=== PATIENT | female | born 1940 | race Hispanic/Latino ===

== ENCOUNTER 2017-11-16 18:30 | Inpatient (IN) | payer OTHER ==
[2017-11-16 21:54] VITALS: BMI 23.8
[2017-11-16] MEDS ORDERED: Pneumococcal 23-Valent Vaccine IM ONE (21:54)
--- NOTE | 2017-11-16 22:00 | CP.PCM.HP ---
History of Present Illness - History of Present Illness History of Present Illness: Sánchez Martinez PGY2 - History and Physical for Hospitalist Service CC: Deconditioning/gait instability HPI: Patient is a 77 year old female with past medical history of Ulcerative Colitis, Arthritis, Hyperlipidemia, DM2 currently without diabetic medication who is transferred to TCU from [facility] for continued physical therapy and rehab. Patient was [facility] to [facility] on November 11 s/p fall with head trauma and leukocytosis(16). Patient was evaluated with Head CT showing small left temporal extracalvarial hematoma with no evidence of underlying skull fracture as well as chest xray which was suspicious for middle lobe pneumonia, presumed pulmonary nodules projecting peripherally within the irght mid lung field, with largest measuring 9 mm. Patient was observed for neurological changes and was started on IV levaquin for community acquired pneumonia. Patient reported never having a productive cough, fever, difficulty breathing, chest pain, dizziness, syncope, seizure activity. 12 point ROS benign other than mentioned in HPI. Imaging from [place] Head CT (11/11/2017) - Small Left temporal extracalvarial hematoma. No evidence of underlying skull fracture. No acute intracranial hemorrhage. Age-related cerebral atrophy with changes of chronic small vessel ischemic disease. Small incidental 2.2 cm righgt posterior fossa arachnoid cyst Chest X ray (11/11/17) - Suspected right middle lobe pneumonia. Presumed pulmonary nodules projecting peripherally within the right midlung field, the largest measuring up to 9 mm. PMH: As above PSH: Cholecystectomy SOCHx: Tobacco: Former 1.5 PPD for 20 plus years, ETOH: Denies, ID: Denies, Currently lives by herself, able to preform ADL ALL: NKDA MEDS: - Carafate 2 Tsp QID - ASA 81mg PO DAIly - Simvastatin 40mg PO daily - Diovan HCT 160mg-12.5mg - Dexilant 60mg PO daily - Monteleukast Sodium PMD: Dr. Elliott Present on Admission - Present on Admission Any Indicators Present on Admission: No Meds Allergies/Adverse Reactions: Allergies Allergy/AdvReac Type Severity Reaction Status Date / Time No Known Allergies Allergy Verified 11/16/17 21:32 Physical Exam - Constitutional Appears: Well, Non-toxic - Head Exam Additional comments: bruising and elevation of scalp at left temporal region - Eye Exam Eye Exam: EOMI, PERRL - ENT Exam ENT Exam: Mucous Membranes Moist - Respiratory Exam Respiratory Exam: Rhonchi (right middle lung), Wheezes, NORMAL BREATHING PATTERN - Cardiovascular Exam Cardiovascular Exam: REGULAR RHYTHM, +S1, +S2 - GI/Abdominal Exam GI & Abdominal Exam: Normal Bowel Sounds - Extremities Exam Extremities exam: Positive for: tenderness (left leg pain with palpation ). Negative for: full ROM, pedal edema - Neurological Exam Neurological exam: Alert, Oriented x3, Reflexes Normal Additional comments: motor and sensory grossly intact bilaterally - Psychiatric Exam Psychiatric exam: Normal Affect, Normal Mood - Skin Skin Exam: Dry, Intact Results - Vital Signs Recent Vital Signs: Last Vital Signs Temp 98.2 F 11/16/17 19:00 Pulse 107 H 11/16/17 19:00 Resp 18 11/16/17 19:00 BP 138/73 11/16/17 19:00 Pulse Ox 93 L 11/16/17 19:00 - Labs Result Diagrams: 11/17/17 06:30 11/17/17 06:30 Assessment & Plan - Assessment and Plan (Free Text) Assessment: Patient is a 77 year old female with past medical history of Ulcerative Colitis , Arthritis, Hyperlipidemia, DM2 currently without diabetic medication who is transferred to TCU from [facility] for continued physical therapy and rehab. Plan: Deconditioning - Continue physical therapy and rehab - TCU admission Right middle lobe pneumonia - CXR showing right middle lobe pneumonia and leukocytosis - No history of productive cough, fever - Started on Levaquin 500mg Daily, Continue therapy with last day November 19 Hx of HLD - Continue statin Suspected pulmonary nodules on previous CXR - recommend non emergent chest CT outpatient for evaluation and further management GI/DVT ppx - Pepcid - Heparin 5000mg Q8H Patient seen and case and plan discussed with attending, Dr. Del Valle - Date & Time Date: 11/16/17 Time: 20:25
[2017-11-17] MEDS: Sucralfate 1 gm/10 ml Oral Susp UD PO SCH ×4 (05:47→21:39)
[2017-11-17 07:09] LABS: BASO # 0.05 K/mm3 (0.0-2.0); BASO % 0.5 % (0.0-3.0); EOS # 0.2 (0.0-0.7); EOS % 1.9 % (1.5-5.0); GRAN # 8.28 (1.4-6.5); GRAN % 76.3 % (50.0-68.0); HEMOGLOBIN 11.1 g/dL (12.0-16.0); LYMPH # 1.7 (1.2-3.4); MEAN CELL VOLUME 83.8 fl (80.0-105.0); MEAN CORPUSCULAR HEMOGLOBIN 26.5 pg (25.0-35.0); MEAN CORPUSCULAR HGB CONC 31.6 g/dl (31.0-37.0); MEAN PLATELET VOLUME 8.9 fl (7.0-11.0); MONO # 0.6 (0.1-0.6); MONO % 5.3 % (1.0-6.0); RBC 4.19 10^6/uL (3.5-6.1); RED CELL DISTRIBUTION WIDTH 14.5 % (11.5-14.5); WHITE BLOOD COUNT 10.9 10^3/ul (4.5-11.0)
[2017-11-17 07:15] LABS: ALBUMIN 3.8 g/dL (3.0-4.8); ALT/SGPT 22 U/L (7-56); AST/SGOT 47 U/L (14-36); BLOOD UREA NITROGEN 18 mg/dL (7-21); GFR AFRICAN-AMERICAN > 60; GFR NON-AFRICAN AMERICAN > 60
[2017-11-17] MEDS ORDERED: Magnesium 2 gm/50 ml NS 2 GM/50 ML BAG IVPB ONE (09:18)
[2017-11-17] MEDS ORDERED: levoFLOXacin 500 MG TAB PO SCH (10:00)
[2017-11-17] MEDS ORDERED: Albuterol-Ipratrop 3 mg / 0.5 (3 ml) UD IH PRN (10:44)
--- NOTE | 2017-11-17 11:19 | CP.PCM.PN ---
<Fani Pablo L - Last Filed: 11/17/17 14:32> Subjective - Date & Time of Evaluation Date of Evaluation: 11/17/17 Time of Evaluation: 11:19 - Subjective Subjective: Fani Pablo PGY-1 Patient Access Registrar, Medicine Progress Note for Dr. Deluna Patient seen and examined at bedside. No acute events overnight. Patient states this morning that her shortness of breath and cough has improved relative to her baseline. Still having some clear sputum production with cough. Denies headache, dizziness, changes in vision or hearing, chest pain, abdominal pain, nausea, vomiting, urinary urgency. Objective - Vital Signs/Intake and Output Vital Signs (last 24 hours): Temp Pulse Resp BP Pulse Ox 98.3 F 109 H 20 130/82 92 L 11/17/17 10:00 11/17/17 10:00 11/17/17 10:00 11/17/17 10:00 11/17/17 10:00 - Medications Medications: Current Medications Acetaminophen (Tylenol 325mg Tab) 650 mg PO Q6H PRN PRN Reason: Fever >100.4 F Albuterol/Ipratropium (Duoneb 3 Mg/0.5 Mg (3 Ml) Ud) 3 ml IH [id number] PRN PRN Reason: Shortness of Breath Aspirin (Aspirin Chewable) 81 mg PO DAILY [facility] Last Admin: 11/17/17 09:45 Dose: 81 mg Atorvastatin Calcium (Lipitor) 40 mg PO DIN [facility] Famotidine (Pepcid) 40 mg PO HS [facility] Heparin Sodium (Porcine) (Heparin) 5,000 units SC Q8 [facility] PRN Reason: Protocol Last Admin: 11/17/17 05:46 Dose: 5,000 units Hydrochlorothiazide (Microzide) 12.5 mg PO DAILY [facility] Last Admin: 11/17/17 09:45 Dose: 12.5 mg Levofloxacin (Levaquin) 250 mg PO DAILY [facility] PRN Reason: Protocol Losartan Potassium (Cozaar) 100 mg PO DAILY [facility] Last Admin: 11/17/17 09:45 Dose: 100 mg Montelukast Sodium (Singulair) 10 mg PO HS [facility] Sucralfate (Carafate Oral Susp) 1 gm PO 0630,1130,1630,2200 [facility] Last Admin: 11/17/17 05:47 Dose: 1 gm - Labs Labs: 11/17/17 06:30 11/17/17 06:30 APTT 32.5 Seconds (25.1-36.5) 11/17/17 06:30 - Constitutional Appears: Non-toxic, No Acute Distress - Head Exam Head Exam: NORMOCEPHALIC Additional comments: Ecchymosis on left islam region - Eye Exam Eye Exam: EOMI, Normal appearance Pupil Exam: NORMAL ACCOMODATION - ENT Exam ENT Exam: Mucous Membranes Moist, Normal Exam - Neck Exam Neck Exam: Full ROM, Normal Inspection - Respiratory Exam Respiratory Exam: Clear to Ausculation Bilateral, NORMAL BREATHING PATTERN. absent: Rales, Rhonchi, Wheezes - Cardiovascular Exam Cardiovascular Exam: RRR, +S1, +S2 - GI/Abdominal Exam GI & Abdominal Exam: Soft, Normal Bowel Sounds. absent: Distended, Firm, Guarding, Tenderness - Extremities Exam Extremities Exam: Full ROM, Normal Inspection - Back Exam Back Exam: NORMAL INSPECTION - Neurological Exam Neurological Exam: Alert, Awake, CN II-XII Intact, Oriented x3 - Psychiatric Exam Psychiatric exam: Normal Affect, Normal Mood - Skin Skin Exam: Dry, Intact, Normal Color Additional comments: Scab on left lower extremity from fall Assessment and Plan - Assessment and Plan (Free Text) Assessment: Patient is a 77 yo female with past medical history ulcerative colitis , hyperlipidemia, T2DM transferred from transitional care unit at [facility] for physical therapy and rehab post fall. Plan: Deconditioned state - Continue physical therapy and rehab in TCU Right middle lobe pneumonia - Continue levaquin Hypomagnesemia - repleted - continue to monitor Suspected pulmonary nodules on CXR - recommend outpatient followup with PMD for chest CT GI/DVT PPX - Pepcid - Heparin Patient seen and discussed with attending physician Dr. Mikie Pablo PGY-1 <Marcia Deluna - Last Filed: 11/17/17 17:17> Objective - Vital Signs/Intake and Output Vital Signs (last 24 hours): Temp Pulse Resp BP Pulse Ox 98.2 F 109 H 16 109/68 93 L 11/17/17 16:00 11/17/17 16:00 11/17/17 16:00 11/17/17 16:00 11/17/17 16:00 - Medications Medications: Current Medications Acetaminophen (Tylenol 325mg Tab) 650 mg PO Q6H PRN PRN Reason: Fever >100.4 F Albuterol/Ipratropium (Duoneb 3 Mg/0.5 Mg (3 Ml) Ud) 3 ml IH [id number] PRN PRN Reason: Shortness of Breath Last Admin: 11/17/17 11:30 Dose: 3 ml Aspirin (Aspirin Chewable) 81 mg PO DAILY [facility] Last Admin: 11/17/17 09:45 Dose: 81 mg Atorvastatin Calcium (Lipitor) 40 mg PO DIN [facility] Last Admin: 11/17/17 17:06 Dose: 40 mg Enoxaparin Sodium (Lovenox) 30 mg SC DAILY [facility] PRN Reason: Protocol Famotidine (Pepcid) 40 mg PO HS [facility] Hydrochlorothiazide (Microzide) 12.5 mg PO DAILY [facility] Last Admin: 11/17/17 09:45 Dose: 12.5 mg Levofloxacin (Levaquin) 500 mg PO 0830 [facility] PRN Reason: Protocol Losartan Potassium (Cozaar) 100 mg PO DAILY [facility] Last Admin: 11/17/17 09:45 Dose: 100 mg Montelukast Sodium (Singulair) 10 mg PO HS [facility] Sucralfate (Carafate Oral Susp) 1 gm PO 0630,1130,1630,2200 [facility] Last Admin: 11/17/17 17:06 Dose: 1 gm - Labs Labs: 11/17/17 06:30 11/17/17 06:30 APTT 32.5 Seconds (25.1-36.5) 11/17/17 06:30 Attending/Attestation - Attestation I have personally seen and examined this patient.: Yes I have fully participated in the care of the patient.: Yes I have reviewed all pertinent clinical information, including history, physical exam and plan: Yes Notes (Text): 11/17/17 17:12 Attending note; patient seen and examined with resident in rehabilitation unit. Patient is a 77 year old female with past medical history of Ulcerative Colitis , Arthritis, Hyperlipidemia, was transferred to TCU from [facility] for physical therapy and rehab. patient had a recent fall. CT head was negative for intracranial bleed. Patient had right middle lobe pneumonia. Continued albuterol. Continue Levaquin. GI and DVT prophylaxis. continue physical therapy and occupational therapy. Upon discharge patient will follow up with PMD . 11/17/17 17:16
[2017-11-18] MEDS: Sucralfate 1 gm/10 ml Oral Susp UD PO SCH ×4 (05:56→21:09)
[2017-11-18] MEDS: Enoxaparin 30 mg Syringe SC SCH (05:56)
[2017-11-18] MEDS: levoFLOXacin 500 MG TAB PO SCH (09:26)
[2017-11-18] MEDS ORDERED: Enoxaparin 30 mg Syringe SC SCH (10:00)
[2017-11-19] MEDS: Sucralfate 1 gm/10 ml Oral Susp UD PO SCH ×4 (06:39→21:33)
[2017-11-19] MEDS: Enoxaparin 30 mg Syringe SC SCH (06:40)
[2017-11-19] MEDS: levoFLOXacin 500 MG TAB PO SCH (09:23)
--- NOTE | 2017-11-19 11:04 | CP.PCM.PN ---
<Jesus Farah - Last Filed: 11/19/17 11:01> Subjective - Date & Time of Evaluation Date of Evaluation: 11/19/17 Time of Evaluation: 11:01 - Subjective Subjective: Jesus Farah D.O PGY-1, Internal Medicine progress note for Dr. Deluna Patient was examined at bedside, no acute overnight events. Still having some clear sputum production with cough. Denies fevers, chills, chest pain, shortness of breath, abdominal pain, N/V/D. Objective - Vital Signs/Intake and Output Vital Signs (last 24 hours): Temp Pulse Resp BP Pulse Ox 98.4 F 101 H 20 110/51 L 94 L 11/18/17 16:00 11/18/17 16:00 11/18/17 16:00 11/18/17 16:00 11/18/17 16:00 - Medications Medications: Current Medications Acetaminophen (Tylenol 325mg Tab) 650 mg PO Q6H PRN PRN Reason: Fever >100.4 F Albuterol/Ipratropium (Duoneb 3 Mg/0.5 Mg (3 Ml) Ud) 3 ml IH [id number] PRN PRN Reason: Shortness of Breath Last Admin: 11/17/17 11:30 Dose: 3 ml Aspirin (Aspirin Chewable) 81 mg PO DAILY [facility] Last Admin: 11/19/17 09:23 Dose: 81 mg Atorvastatin Calcium (Lipitor) 40 mg PO DIN [facility] Last Admin: 11/18/17 17:14 Dose: 40 mg Enoxaparin Sodium (Lovenox) 30 mg SC 0600 [facility] PRN Reason: Protocol Last Admin: 11/19/17 06:40 Dose: 30 mg Famotidine (Pepcid) 40 mg PO HS [facility] Last Admin: 11/18/17 21:10 Dose: 40 mg Levofloxacin (Levaquin) 500 mg PO 0830 [facility] PRN Reason: Protocol Last Admin: 11/19/17 09:23 Dose: 500 mg Losartan Potassium (Cozaar) 100 mg PO DAILY [facility] Last Admin: 11/19/17 09:23 Dose: 100 mg Montelukast Sodium (Singulair) 10 mg PO HS [facility] Last Admin: 11/18/17 21:10 Dose: 10 mg Sucralfate (Carafate Oral Susp) 1 gm PO 0630,1130,1630,2200 [facility] Last Admin: 11/19/17 06:39 Dose: 1 gm - Labs Labs: 11/17/17 06:30 11/17/17 06:30 APTT 32.5 Seconds (25.1-36.5) 11/17/17 06:30 - Constitutional Appears: Well, No Acute Distress - Head Exam Head Exam: ATRAUMATIC, NORMAL INSPECTION - Eye Exam Eye Exam: Normal appearance - Respiratory Exam Respiratory Exam: Clear to Ausculation Bilateral, Wheezes. absent: Rales, Rhonchi Additional comments: Mild expiratory wheezes - Cardiovascular Exam Cardiovascular Exam: REGULAR RHYTHM, +S1, +S2. absent: Gallop, Rubs, Murmur - GI/Abdominal Exam GI & Abdominal Exam: Soft, Normal Bowel Sounds. absent: Tenderness - Extremities Exam Extremities Exam: absent: Calf Tenderness, Pedal Edema - Neurological Exam Neurological Exam: Alert, Awake, Oriented x3 - Psychiatric Exam Psychiatric exam: Normal Affect, Normal Mood - Skin Skin Exam: Dry, Normal Color, Warm Assessment and Plan - Assessment and Plan (Free Text) Assessment: Ms. Rodriguez is a 77 yo female with past medical history ulcerative colitis, hyperlipidemia, T2DM transferred from transitional care unit at [facility] for physical therapy and rehab post fall. Plan: Deconditioned state - Continue physical therapy and rehab in TCU Hypotension - Hydrochlorothiazide held Right middle lobe pneumonia - Continue levaquin Suspected pulmonary nodules on CXR - recommend outpatient followup with PMD for chest CT GI/DVT PPX - Pepcid - Lovenox Patient seen, examined, and case discussed with Dr. Deluna <Marcia Deluna - Last Filed: 11/19/17 11:40> Objective - Vital Signs/Intake and Output Vital Signs (last 24 hours): Temp Pulse Resp BP Pulse Ox 98.4 F 101 H 20 110/51 L 94 L 11/18/17 16:00 11/18/17 16:00 11/18/17 16:00 11/18/17 16:00 11/18/17 16:00 - Medications Medications: Current Medications Acetaminophen (Tylenol 325mg Tab) 650 mg PO Q6H PRN PRN Reason: Fever >100.4 F Albuterol/Ipratropium (Duoneb 3 Mg/0.5 Mg (3 Ml) Ud) 3 ml IH [id number] PRN PRN Reason: Shortness of Breath Last Admin: 11/17/17 11:30 Dose: 3 ml Aspirin (Aspirin Chewable) 81 mg PO DAILY [facility] Last Admin: 11/19/17 09:23 Dose: 81 mg Atorvastatin Calcium (Lipitor) 40 mg PO DIN [facility] Last Admin: 11/18/17 17:14 Dose: 40 mg Enoxaparin Sodium (Lovenox) 30 mg SC 0600 [facility] PRN Reason: Protocol Last Admin: 11/19/17 06:40 Dose: 30 mg Famotidine (Pepcid) 40 mg PO HS [facility] Last Admin: 11/18/17 21:10 Dose: 40 mg Levofloxacin (Levaquin) 500 mg PO 0830 [facility] PRN Reason: Protocol Last Admin: 11/19/17 09:23 Dose: 500 mg Losartan Potassium (Cozaar) 100 mg PO DAILY [facility] Last Admin: 11/19/17 09:23 Dose: 100 mg Montelukast Sodium (Singulair) 10 mg PO HS [facility] Last Admin: 11/18/17 21:10 Dose: 10 mg Sucralfate (Carafate Oral Susp) 1 gm PO 0630,1130,1630,2200 [facility] Last Admin: 11/19/17 06:39 Dose: 1 gm - Labs Labs: 11/17/17 06:30 11/17/17 06:30 APTT 32.5 Seconds (25.1-36.5) 11/17/17 06:30 Attending/Attestation - Attestation I have personally seen and examined this patient.: Yes I have fully participated in the care of the patient.: Yes I have reviewed all pertinent clinical information, including history, physical exam and plan: Yes Notes (Text): 11/19/17 11:39 Attending note; patient seen and examined with resident in TCU. Patient is alert and awake. Denies any chest pain, shortness of breath. Minimal amount of cough. No significant sputum production. Patient is a 77 year old female with past medical history of Ulcerative Colitis , Arthritis, Hyperlipidemia was transferred to TCU from [facility] for physical therapy and rehab. patient had a recent fall. CT head was negative for intracranial bleed. Patient had right middle lobe pneumonia. Continued albuterol. Continue Levaquin. Relative hypotension; HCTZ on hold. Monitor closely GI and DVT prophylaxis. continue physical therapy and occupational therapy. Upon discharge patient will follow up with PMD .
[2017-11-20] MEDS: Enoxaparin 30 mg Syringe SC SCH (05:47)
[2017-11-20] MEDS: Sucralfate 1 gm/10 ml Oral Susp UD PO SCH ×4 (05:47→21:36)
[2017-11-20] MEDS: levoFLOXacin 500 MG TAB PO SCH (07:53)
[2017-11-21] MEDS: Enoxaparin 30 mg Syringe SC SCH (05:35)
[2017-11-21] MEDS: Sucralfate 1 gm/10 ml Oral Susp UD PO SCH ×4 (05:35→21:42)
[2017-11-21] MEDS: levoFLOXacin 500 MG TAB PO SCH (07:50)
--- NOTE | 2017-11-21 15:15 | CP.PCM.PN ---
<Jesus Farah - Last Filed: 11/21/17 18:17> Subjective - Date & Time of Evaluation Date of Evaluation: 11/21/17 Time of Evaluation: 15:15 - Subjective Subjective: Jesus Farah D.O PGY-1, Internal Medicine progress note for Dr. Maddox Patient was examined at bedside, no acute overnight events. Patient complains of pain in both her feet due to her arthritis but has resolved after taking tylenol. Denies fevers, chills, chest pain, shortness of breath, abdominal pain , N/V/D. Objective - Vital Signs/Intake and Output Vital Signs (last 24 hours): Temp Pulse Resp BP Pulse Ox 98.7 F 98 H 18 100/53 L 95 11/20/17 16:00 11/20/17 16:00 11/20/17 16:00 11/20/17 16:00 11/20/17 10:00 - Medications Medications: Current Medications Acetaminophen (Tylenol 325mg Tab) 650 mg PO Q6H PRN PRN Reason: Fever >100.4 F Last Admin: 11/21/17 09:30 Dose: 650 mg Albuterol/Ipratropium (Duoneb 3 Mg/0.5 Mg (3 Ml) Ud) 3 ml IH [id number] PRN PRN Reason: Shortness of Breath Last Admin: 11/17/17 11:30 Dose: 3 ml Aspirin (Aspirin Chewable) 81 mg PO DAILY [facility] Last Admin: 11/21/17 09:31 Dose: 81 mg Atorvastatin Calcium (Lipitor) 40 mg PO DIN [facility] Last Admin: 11/20/17 16:46 Dose: 40 mg Enoxaparin Sodium (Lovenox) 30 mg SC 0600 [facility] PRN Reason: Protocol Last Admin: 11/21/17 05:35 Dose: 30 mg Famotidine (Pepcid) 40 mg PO HS [facility] Last Admin: 11/20/17 21:36 Dose: 40 mg Levofloxacin (Levaquin) 500 mg PO DAILY [facility] PRN Reason: Protocol Stop: 11/24/17 10:01 Losartan Potassium (Cozaar) 100 mg PO DAILY [facility] Last Admin: 11/21/17 09:32 Dose: 100 mg Montelukast Sodium (Singulair) 10 mg PO HS [facility] Last Admin: 11/20/17 21:36 Dose: 10 mg Sucralfate (Carafate Oral Susp) 1 gm PO 0630,1130,1630,2200 [facility] Last Admin: 11/21/17 12:02 Dose: 1 gm - Labs Labs: 11/17/17 06:30 11/17/17 06:30 APTT 32.5 Seconds (25.1-36.5) 11/17/17 06:30 - Constitutional Appears: No Acute Distress - Head Exam Head Exam: ATRAUMATIC, NORMAL INSPECTION - Eye Exam Eye Exam: Normal appearance - ENT Exam ENT Exam: Mucous Membranes Moist - Respiratory Exam Respiratory Exam: Clear to Ausculation Bilateral. absent: Rales, Rhonchi, Wheezes - Cardiovascular Exam Cardiovascular Exam: REGULAR RHYTHM, +S1, +S2. absent: Gallop, Rubs, Murmur - GI/Abdominal Exam GI & Abdominal Exam: Soft, Normal Bowel Sounds. absent: Tenderness - Extremities Exam Extremities Exam: absent: Calf Tenderness, Pedal Edema - Neurological Exam Neurological Exam: Alert, Awake, Oriented x3 - Psychiatric Exam Psychiatric exam: Normal Affect, Normal Mood - Skin Skin Exam: Dry, Normal Color, Warm Assessment and Plan - Assessment and Plan (Free Text) Assessment: Ms. Rodriguez is a 77 yo female with past medical history ulcerative colitis, hyperlipidemia, and DM-2 transferred from transitional care unit at [facility] for physical therapy and rehab post-fall. She was found to have pneumonia and is currently being treated with anitbiotics Plan: Deconditioned state - Continue physical therapy and rehab [facility] Acquired Pneumonia - Continue Levaquin 500mg PO QD- last day of treatment is 11/24 History of hypertension - C/w Losartan 100mg - Hydrochlorothiazide held due to low BP History of hyperlipidemia - C/w Lipitor 40mg Suspected pulmonary nodules on CXR - Imaging was done at [facility] - Recommended outpatient followup with PMD for chest CT GI/DVT PPX - Pepcid 40mg - Lovenox 30mg SC Patient case reviewed with and plan approved by attending physician, Dr. Maddox. <Krissy Maddox - Last Filed: 11/22/17 08:08> Objective - Vital Signs/Intake and Output Vital Signs (last 24 hours): Temp Pulse Resp BP Pulse Ox 97.6 F 104 H 20 110/74 97 11/21/17 10:00 11/21/17 10:00 11/21/17 10:00 11/21/17 10:00 11/21/17 10:00 Intake and Output: 11/22/17 11/22/17 06:59 18:59 Intake Total 360 Balance 360 - Medications Medications: Current Medications Acetaminophen (Tylenol 325mg Tab) 650 mg PO Q6H PRN PRN Reason: Fever >100.4 F Last Admin: 11/21/17 09:30 Dose: 650 mg Albuterol/Ipratropium (Duoneb 3 Mg/0.5 Mg (3 Ml) Ud) 3 ml IH [id number] PRN PRN Reason: Shortness of Breath Last Admin: 11/17/17 11:30 Dose: 3 ml Aspirin (Aspirin Chewable) 81 mg PO DAILY [facility] Last Admin: 11/21/17 09:31 Dose: 81 mg Atorvastatin Calcium (Lipitor) 40 mg PO DIN [facility] Last Admin: 11/21/17 18:07 Dose: 40 mg Enoxaparin Sodium (Lovenox) 30 mg SC 0600 [facility] PRN Reason: Protocol Last Admin: 11/22/17 05:57 Dose: 30 mg Levofloxacin (Levaquin) 500 mg PO DAILY [facility] PRN Reason: Protocol Stop: 11/24/17 10:01 Losartan Potassium (Cozaar) 100 mg PO DAILY [facility] Last Admin: 11/21/17 09:32 Dose: 100 mg Montelukast Sodium (Singulair) 10 mg PO HS [facility] Last Admin: 11/21/17 21:42 Dose: 10 mg Sucralfate (Carafate Oral Susp) 1 gm PO 0630,1130,1630,2200 [facility] Last Admin: 11/22/17 05:57 Dose: 1 gm - Labs Labs: 11/17/17 06:30 11/17/17 06:30 APTT 32.5 Seconds (25.1-36.5) 11/17/17 06:30 Attending/Attestation - Attestation I have personally seen and examined this patient.: Yes I have fully participated in the care of the patient.: Yes I have reviewed all pertinent clinical information, including history, physical exam and plan: Yes Notes (Text): Patient seen and examined by me at 12:15PM 11/21/17 with resident. Patient is new to me. Case discussed with Dr. Nova. Case including HPI, physical exam , and physical assessment and plan discussed with resident. Agree with above with following additions/corrections. Patient is a 69-year-old female with past medical history significant for ulcerative colitis, arthritis, hyperlipidemia, type 2 diabetes, and recent fall and was transferred to TCU from [facility] for physical therapy and rehabilitation. Patient states that she is doing well with physical therapy. Complains of pain from arthritis in bilateral feet and ankles. Patient denies chest pain or shortness of breath. No abdominal pain, nausea, or vomiting. No fevers or chills. No headaches or dizziness. No dysuria. No diarrhea or constipation. States she is eating well. Physical exam: Gen: Awake and alert sitting up in bed in no acute distress HEENT: Normocephalic, atraumatic, extraocular muscles intact, pupils equal reactive, oropharynx is pink and moist, no pharyngeal erythema or exudate appreciated, neck is supple. Cardiovascular: Normal rhythm, normal S1-S2. No murmurs, rubs, or gallops appreciated Pulmonary: Normal respiratory effort. No rhonchi, rales or wheezing appreciated. Gastrointestinal: Soft, nontender, nondistended, positive bowel sounds all 4 quadrants, no guarding Musculoskeletal: Moves all extremities, no calf tenderness Central nervous system: AAO 3 Dermatologic: Skin warm and dry Assessment and plan: Patient is a 69-year-old female with past medical history significant for ulcerative colitis, arthritis, hyperlipidemia, type 2 diabetes, and recent fall and was transferred to TCU from [facility] for physical therapy and rehabilitation. 1. Deconditioning status post recent fall. Continue physical therapy as tolerated. 2. Possible right middle lobe pneumonia on chest x-ray. Patient is status post treatment with Levaquin. Patient asymptomatic. 3. Pulmonary nodules. Patient will need CAT scan of the chest as an outpatient with her primary care doctor. Discussed with patient 4. Essential hypertension. Continue with Cozaar. 5. Hypercholesterolemia. Continue Lipitor 6. History of type 2 diabetes. Patient is not on any medications at home. Controlled with diet and exercise 7. DVT prophylaxis. Lovenox Case was discussed in detail with the patient and medical historian at bedside regarding current diagnosis and treatment plan
[2017-11-22] MEDS: Enoxaparin 30 mg Syringe SC SCH (05:57)
[2017-11-22] MEDS: Sucralfate 1 gm/10 ml Oral Susp UD PO SCH ×4 (05:57→21:35)
[2017-11-22] MEDS ORDERED: levoFLOXacin 500 MG TAB PO SCH (10:00)
[2017-11-22 10:27] VITALS: RESP 18
[2017-11-23] MEDS: Enoxaparin 30 mg Syringe SC SCH (05:53)
[2017-11-23] MEDS: Sucralfate 1 gm/10 ml Oral Susp UD PO SCH ×4 (05:53→21:45)
[2017-11-23] MEDS: Albuterol-Ipratrop 3 mg / 0.5 (3 ml) UD IH SCH ×2 (12:59→21:01)
--- NOTE | 2017-11-23 13:52 | CP.PCM.PN ---
<Jesus Farah - Last Filed: 11/23/17 13:49> Subjective - Date & Time of Evaluation Date of Evaluation: 11/23/17 Time of Evaluation: 13:49 - Subjective Subjective: Jesus Farah D.O PGY-1, Internal Medicine progress note for Dr. Maddox Patient was examined at bedside, no acute overnight events. Patient still complains of pain in both her feet due to her arthritis. She states that she has an appointment with her water purifier to get her steroid injections for her arthritis after she is discharged. Denies fevers, chills, chest pain, shortness of breath, abdominal pain, N/V/D. Objective - Vital Signs/Intake and Output Vital Signs (last 24 hours): Temp Pulse Resp BP Pulse Ox 97.3 F L 88 18 119/52 L 97 11/22/17 16:00 11/22/17 16:00 11/22/17 16:00 11/22/17 16:00 11/22/17 16:00 Intake and Output: 11/23/17 11/23/17 06:59 18:59 Intake Total 280 Balance 280 - Medications Medications: Current Medications Acetaminophen (Tylenol 325mg Tab) 650 mg PO Q6H PRN PRN Reason: Fever >100.4 F Last Admin: 11/21/17 09:30 Dose: 650 mg Albuterol/Ipratropium (Duoneb 3 Mg/0.5 Mg (3 Ml) Ud) 3 ml IH [id number] [facility] Last Admin: 11/23/17 12:59 Dose: 3 ml Aspirin (Aspirin Chewable) 81 mg PO DAILY [facility] Last Admin: 11/23/17 10:33 Dose: 81 mg Atorvastatin Calcium (Lipitor) 40 mg PO DIN [facility] Last Admin: 11/22/17 17:21 Dose: 40 mg Enoxaparin Sodium (Lovenox) 30 mg SC 0600 [facility] PRN Reason: Protocol Last Admin: 11/23/17 05:53 Dose: 30 mg Losartan Potassium (Cozaar) 100 mg PO DAILY [facility] Last Admin: 11/23/17 10:33 Dose: 100 mg Montelukast Sodium (Singulair) 10 mg PO HS [facility] Last Admin: 11/22/17 21:35 Dose: 10 mg Sucralfate (Carafate Oral Susp) 1 gm PO 0630,1130,1630,2200 [facility] Last Admin: 11/23/17 10:33 Dose: 1 gm - Labs Labs: 11/17/17 06:30 11/17/17 06:30 APTT 32.5 Seconds (25.1-36.5) 11/17/17 06:30 - Constitutional Appears: No Acute Distress - Head Exam Head Exam: ATRAUMATIC, NORMAL INSPECTION - Eye Exam Eye Exam: Normal appearance - ENT Exam ENT Exam: Mucous Membranes Moist - Respiratory Exam Respiratory Exam: Clear to Ausculation Bilateral. absent: Rales, Rhonchi, Wheezes - Cardiovascular Exam Cardiovascular Exam: REGULAR RHYTHM, +S1, +S2. absent: Gallop, Rubs, Murmur - GI/Abdominal Exam GI & Abdominal Exam: Soft, Normal Bowel Sounds. absent: Tenderness - Extremities Exam Extremities Exam: Joint Swelling. absent: Calf Tenderness, Pedal Edema Additional comments: chronic joint swelling on both her feet. - Neurological Exam Neurological Exam: Alert, Awake, Oriented x3 - Psychiatric Exam Psychiatric exam: Normal Affect, Normal Mood - Skin Skin Exam: Dry, Normal Color, Warm Assessment and Plan - Assessment and Plan (Free Text) Assessment: Ms. Rodriguez is a 77 yo female with past medical history ulcerative colitis, hyperlipidemia, and DM-2 transferred from transitional care unit at [facility] for physical therapy and rehab post-fall. She was found to have pneumonia but has now resolved. Plan: Deconditioned state - Continue physical therapy and rehab in TCU - Pt planned for discharge 11/24 History of arthritis on both feet - pt is complaining of mild pain on both her feet - tylenol 325mg PRN - pt states she has an appointment to follow up with her water purifier after discharge History of hypertension - C/w Losartan 100mg - Hydrochlorothiazide held due to low BP History of hyperlipidemia - C/w Lipitor 40mg Hospital Acquired Pneumonia, resolved - patient asymptomatic - levaquin 500mg PO QD- stopped 11/22 Suspected pulmonary nodules on CXR - imaging was done at [facility] - pt is aware of these nodules, had done CT and PET scans this year- negative for malignancy - recommended outpatient followup with PMD for chest CT GI/DVT PPX - Pepcid 40mg - Lovenox 30mg SC Patient case reviewed with and plan approved by attending physician, Dr. Maddox. <Krissy Maddox R - Last Filed: 11/23/17 15:26> Objective - Vital Signs/Intake and Output Vital Signs (last 24 hours): Temp Pulse Resp BP Pulse Ox 97.3 F L 88 18 119/52 L 97 11/22/17 16:00 11/22/17 16:00 11/22/17 16:00 11/22/17 16:00 11/22/17 16:00 Intake and Output: 11/23/17 11/23/17 06:59 18:59 Intake Total 280 Balance 280 - Medications Medications: Current Medications Acetaminophen (Tylenol 325mg Tab) 650 mg PO Q6H PRN PRN Reason: Fever >100.4 F Last Admin: 11/21/17 09:30 Dose: 650 mg Albuterol/Ipratropium (Duoneb 3 Mg/0.5 Mg (3 Ml) Ud) 3 ml IH [id number] [facility] Last Admin: 11/23/17 12:59 Dose: 3 ml Aspirin (Aspirin Chewable) 81 mg PO DAILY [facility] Last Admin: 11/23/17 10:33 Dose: 81 mg Atorvastatin Calcium (Lipitor) 40 mg PO DIN [facility] Last Admin: 11/22/17 17:21 Dose: 40 mg Enoxaparin Sodium (Lovenox) 30 mg SC 0600 [facility] PRN Reason: Protocol Last Admin: 11/23/17 05:53 Dose: 30 mg Losartan Potassium (Cozaar) 100 mg PO DAILY [facility] Last Admin: 11/23/17 10:33 Dose: 100 mg Montelukast Sodium (Singulair) 10 mg PO HS [facility] Last Admin: 11/22/17 21:35 Dose: 10 mg Sucralfate (Carafate Oral Susp) 1 gm PO 0630,1130,1630,2200 [facility] Last Admin: 11/23/17 10:33 Dose: 1 gm - Labs Labs: 11/17/17 06:30 11/17/17 06:30 APTT 32.5 Seconds (25.1-36.5) 11/17/17 06:30 Attending/Attestation - Attestation I have personally seen and examined this patient.: Yes I have fully participated in the care of the patient.: Yes I have reviewed all pertinent clinical information, including history, physical exam and plan: Yes Notes (Text): Patient seen and examined by me at 11:40AM with resident. Case including HPI, physical exam, and physical assessment and plan discussed with resident. Agree with above with following additions/corrections. Patient states that she is doing ok. Has pain in her bilateral ankles and feet from arthritis. She states she is following up with her water purifier tomorrow after discharge. She has been walking with walker with physical therapy. Patient denies chest pain or shortness of breath. No cough. No abdominal pain, nausea, or vomiting. No fevers or chills. No headaches or dizziness. No dysuria. No diarrhea or constipation. States she is eating well. Physical exam: Gen: Awake and alert sitting up in bed in no acute distress HEENT: Normocephalic, atraumatic. Extraocular muscles intact, pupils equal reactive. Oropharynx is pink and moist, no pharyngeal erythema or exudate appreciated. Neck is supple. Cardiovascular: Normal rhythm, normal S1-S2. No murmurs, rubs, or gallops appreciated Pulmonary: Normal respiratory effort. No rhonchi, rales or wheezing appreciated. Gastrointestinal: Soft, nontender, nondistended, positive bowel sounds all 4 quadrants, no guarding Musculoskeletal: Moves all extremities, no calf tenderness Central nervous system: AAO 3 Dermatologic: Skin warm and dry Assessment and plan: Patient is a 69-year-old female with past medical history significant for ulcerative colitis, arthritis, hyperlipidemia, type 2 diabetes, and recent fall and was transferred to TCU from [facility] for physical therapy and rehabilitation. 1. Deconditioning status post recent fall. Continue physical therapy as tolerated. Anticipate discharge for tomorrow. Patient is doing well. 2. Possible right middle lobe pneumonia on chest x-ray. Patient is status post treatment with Levaquin. Patient asymptomatic. 3. Pulmonary nodules. Per patient, she is aware of these nodules and had Chest CT and PET scan done. She states she follows with her PMD for this. 4. Essential hypertension. Continue with Cozaar. 5. Hypercholesterolemia. Continue Lipitor 6. History of type 2 diabetes. Patient is not on any medications at home. Controlled with diet and exercise 7. Arthritis. Patient to continue outpatient follow up with her water purifier. Tylenol prn. 8. DVT prophylaxis. Lovenox Case was discussed in detail with the patient and medical legal investigator at bedside regarding current diagnosis and treatment plan
[2017-11-24] MEDS: Albuterol-Ipratrop 3 mg / 0.5 (3 ml) UD IH SCH ×3 (02:25→13:24)
[2017-11-24] MEDS: Enoxaparin 30 mg Syringe SC SCH (06:07)
[2017-11-24] MEDS: Sucralfate 1 gm/10 ml Oral Susp UD PO SCH ×2 (06:07→13:02)
[2017-11-24 10:22] VITALS: BP 121/66; PULSE 92; TEMP 97.4; O2SAT 93
--- NOTE | 2017-11-24 12:12 | CP.PCM.DIS ---
<Jaden Ledbetter - Last Filed: 11/24/17 12:12> Provider - Provider Date of Admission: 11/16/17 18:30 Attending physician: Krissy Maddox DO Primary care physician: Abel Adame Jr, MD Time Spent in preparation of Discharge (in minutes): 45 Diagnosis - Discharge Diagnosis (1) Physical deconditioning Status: Resolved Priority: High (2) Hospital-acquired pneumonia Status: Resolved Priority: Low (3) Pulmonary nodule Status: Chronic Priority: Low (4) Hypertension Status: Chronic Priority: Low (5) Hyperlipidemia Status: Chronic Priority: Low (6) Arthritis Status: Chronic Priority: Low Hospital Course - Lab Results Lab Results: Most Recent Lab Values WBC 10.9 10^3/ul (4.5-11.0) 11/17/17 06:30 RBC 4.19 10^6/uL (3.5-6.1) 11/17/17 06:30 Hgb 11.1 g/dL (12.0-16.0) L 11/17/17 06:30 Hct 35.1 % (36.0-48.0) L 11/17/17 06:30 MCV 83.8 fl (80.0-105.0) 11/17/17 06:30 MCH 26.5 pg (25.0-35.0) 11/17/17 06:30 MCHC 31.6 g/dl (31.0-37.0) 11/17/17 06:30 RDW 14.5 % (11.5-14.5) 11/17/17 06:30 Plt Count 527 10^3/uL (120.0-450.0) H 11/17/17 06:30 MPV 8.9 fl (7.0-11.0) 11/17/17 06:30 Gran % 76.3 % (50.0-68.0) H 11/17/17 06:30 Lymph % (Auto) 16.0 % (22.0-35.0) L 11/17/17 06:30 Johnson % (Auto) 5.3 % (1.0-6.0) 11/17/17 06:30 Eos % (Auto) 1.9 % (1.5-5.0) 11/17/17 06:30 Baso % (Auto) 0.5 % (0.0-3.0) 11/17/17 06:30 Gran # 8.28 (1.4-6.5) H 11/17/17 06:30 Lymph # (Auto) 1.7 (1.2-3.4) 11/17/17 06:30 Johnson # (Auto) 0.6 (0.1-0.6) 11/17/17 06:30 Eos # (Auto) 0.2 (0.0-0.7) 11/17/17 06:30 Baso # (Auto) 0.05 K/mm3 (0.0-2.0) 11/17/17 06:30 APTT 32.5 Seconds (25.1-36.5) 11/17/17 06:30 Sodium 142 mmol/L (132-148) 11/17/17 06:30 Potassium 4.2 mmol/L (3.6-5.0) 11/17/17 06:30 Chloride 103 mmol/L (98-107) 11/17/17 06:30 Carbon Dioxide 26 mmol/L (21-33) 11/17/17 06:30 Anion Gap 17 (10-20) 11/17/17 06:30 BUN 18 mg/dL (7-21) 11/17/17 06:30 Creatinine 0.9 mg/dl (0.7-1.2) 11/17/17 06:30 Est GFR ( Amer) > 60 11/17/17 06:30 Est GFR (Non-Af Amer) > 60 11/17/17 06:30 Random Glucose 103 mg/dL (70-110) 11/17/17 06:30 Calcium 10.0 mg/dL (8.4-10.5) 11/17/17 06:30 Phosphorus 4.5 mg/dL (2.5-4.5) 11/17/17 06:30 Magnesium 1.4 mg/dL (1.7-2.2) L 11/17/17 06:30 Total Bilirubin 0.4 mg/dL (0.2-1.3) 11/17/17 06:30 AST 47 U/L (14-36) H 11/17/17 06:30 ALT 22 U/L (7-56) 11/17/17 06:30 Alkaline Phosphatase 80 U/L (38-126) 11/17/17 06:30 Total Protein 7.7 g/dL (5.8-8.3) 11/17/17 06:30 Albumin 3.8 g/dL (3.0-4.8) 11/17/17 06:30 Globulin 3.9 gm/dL 11/17/17 06:30 Albumin/Globulin Ratio 1.0 (1.1-1.8) L 11/17/17 06:30 - Hospital Course Hospital Course: Pt is a 77 yo F with PMH of UC, arthritis, HLD, and DM2 presents as a transfer to TCU from [facility] due to deconditioning, where she was admitted for fall with head trauma and leukocytosis likely 2/2 to community acquired pneumonia. Significant imaging performed at [facility] were CT head showing small left temporal extracalvarial hematoma and CXR showing suspected right middle lobe pneumonia and pulmonary nodules in the right mid-lung, greatest measuring up to 9 mm. During patients course in TCU, she was continued and eventually discontinued on antibiotics. Physical therapy was continued, which she tolerated well. Patients home medications were resumed. Today, patient was seen and examined at bedside. No acute overnight events. As patient was hemodynamically stable and completed her 8 day course in TCU, she was discharged. Patient was advised to follow up with her PMD and integration software developer outpatient and resume her home medications. Patient was advised to follow up with her PMD for routine monitoring of her pulmonary nodules, which she is aware of is already being monitored by her PMD. Patient acknowledged and agreed to plan. Discharge Medications - Carafate 2 tsp QID - ASA 81 mg PO - Simvastatin 40 mg PO daily - Diovan HCT 160-12.5 mg PO daily - Dexilant 60 mg PO daily - Montelukast daily Discharge Exam - Head Exam Head Exam: ATRAUMATIC, NORMAL INSPECTION - Eye Exam Eye Exam: EOMI, Normal appearance, PERRL - Neck Exam Neck exam: Normal Inspection - Respiratory Exam Respiratory Exam: Clear to PA & Lateral. absent: Rales, Rhonchi, Wheezes - Cardiovascular Exam Cardiovascular Exam: RRR. absent: Diastolic murmur, Gallop, Rubs, Systolic Murmur - GI/Abdominal Exam GI & Abdominal Exam: Soft. absent: Distended, Guarding, Rebound, Rigid, Tenderness - Extremities Exam Extremities exam: normal inspection - Back Exam Back exam: NORMAL INSPECTION - Neurological Exam Neurological exam: Alert, CN II-XII Intact, Oriented x3 - Psychiatric Exam Psychiatric exam: Normal Affect, Normal Mood - Skin Skin Exam: Dry, Intact, Normal Color, Warm Discharge Plan - Follow Up Plan Condition: GOOD Disposition: HOME/ ROUTINE Instructions: Pneumonia, Adult (DC) Additional Instructions: - Follow up with primary doctor, Dr. Adame, within 3-5 days - Continue routine monitoring with Dr. Adame due to pulmonary nodule finding - Follow up with integration software developer within 3-5 days - Take medications as prescribed - Proceed to ED if symptoms return Referrals: Abel Adame Jr., MD [Primary Care Provider] - <Krissy Maddox - Last Filed: 11/25/17 14:36> Provider - Provider Date of Admission: 11/16/17 18:30 Attending physician: Krissy Maddox DO Primary care physician: Abel Adame Jr, MD Hospital Course - Lab Results Lab Results: Most Recent Lab Values WBC 10.9 10^3/ul (4.5-11.0) 11/17/17 06:30 RBC 4.19 10^6/uL (3.5-6.1) 11/17/17 06:30 Hgb 11.1 g/dL (12.0-16.0) L 11/17/17 06:30 Hct 35.1 % (36.0-48.0) L 11/17/17 06:30 MCV 83.8 fl (80.0-105.0) 11/17/17 06:30 MCH 26.5 pg (25.0-35.0) 11/17/17 06:30 MCHC 31.6 g/dl (31.0-37.0) 11/17/17 06:30 RDW 14.5 % (11.5-14.5) 11/17/17 06:30 Plt Count 527 10^3/uL (120.0-450.0) H 11/17/17 06:30 MPV 8.9 fl (7.0-11.0) 11/17/17 06:30 Gran % 76.3 % (50.0-68.0) H 11/17/17 06:30 Lymph % (Auto) 16.0 % (22.0-35.0) L 11/17/17 06:30 Johnson % (Auto) 5.3 % (1.0-6.0) 11/17/17 06:30 Eos % (Auto) 1.9 % (1.5-5.0) 11/17/17 06:30 Baso % (Auto) 0.5 % (0.0-3.0) 11/17/17 06:30 Gran # 8.28 (1.4-6.5) H 11/17/17 06:30 Lymph # (Auto) 1.7 (1.2-3.4) 11/17/17 06:30 Johnson # (Auto) 0.6 (0.1-0.6) 11/17/17 06:30 Eos # (Auto) 0.2 (0.0-0.7) 11/17/17 06:30 Baso # (Auto) 0.05 K/mm3 (0.0-2.0) 11/17/17 06:30 APTT 32.5 Seconds (25.1-36.5) 11/17/17 06:30 Sodium 142 mmol/L (132-148) 11/17/17 06:30 Potassium 4.2 mmol/L (3.6-5.0) 11/17/17 06:30 Chloride 103 mmol/L (98-107) 11/17/17 06:30 Carbon Dioxide 26 mmol/L (21-33) 11/17/17 06:30 Anion Gap 17 (10-20) 11/17/17 06:30 BUN 18 mg/dL (7-21) 11/17/17 06:30 Creatinine 0.9 mg/dl (0.7-1.2) 11/17/17 06:30 Est GFR ( Amer) > 60 11/17/17 06:30 Est GFR (Non-Af Amer) > 60 11/17/17 06:30 Random Glucose 103 mg/dL (70-110) 11/17/17 06:30 Calcium 10.0 mg/dL (8.4-10.5) 11/17/17 06:30 Phosphorus 4.5 mg/dL (2.5-4.5) 11/17/17 06:30 Magnesium 1.4 mg/dL (1.7-2.2) L 11/17/17 06:30 Total Bilirubin 0.4 mg/dL (0.2-1.3) 11/17/17 06:30 AST 47 U/L (14-36) H 11/17/17 06:30 ALT 22 U/L (7-56) 11/17/17 06:30 Alkaline Phosphatase 80 U/L (38-126) 11/17/17 06:30 Total Protein 7.7 g/dL (5.8-8.3) 11/17/17 06:30 Albumin 3.8 g/dL (3.0-4.8) 11/17/17 06:30 Globulin 3.9 gm/dL 11/17/17 06:30 Albumin/Globulin Ratio 1.0 (1.1-1.8) L 11/17/17 06:30 Attending/Attestation - Attestation I have personally seen and examined this patient.: Yes I have fully participated in the care of the patient.: Yes I have reviewed all pertinent clinical information, including history, physical exam and plan: Yes Notes (Text): Patient seen and examined by me with resident at 10:00AM 11/24/17. Case including discharge plan discussed with resident. Agree with above with following additions/corrections Patient is a 77-year-old female past medical history significant for ulcerated colitis, arthritis, hyperlipidemia, and type 2 diabetes off medications that was transferred to the transitional care unit at [facility] from [facility] for continued physical therapy and rehabilitation. Please see dictated H&P for further details. Patient was admitted to [facility] on 11/11/2017 after having a fall with head trauma. A head CT was done at that time which showed a small left temporal extracalvarial hematoma with no evidence of underlying skull fracture. A chest x-ray was also done there which was suspicious for middle lobe pneumonia and presumed pulmonary nodules. Patient was placed on IV Levaquin for pneumonia at [facility]. Patient was transferred [facility] for continued physical therapy and rehabilitation. Patient completed Levaquin here. Patient had no cough, fevers, or leukocytosis. Patient was found to have hypomagnesemia which was repleted. Patient was doing well with physical therapy. Patient is aware of her pulmonary nodules and states that she has had a chest CT and a PET scan done. She follows with her primary care doctor for this. Patient was continued on Cozaar for her hypertension. Patient was continued on Lipitor for her hypercholesterolemia. Patient to follow-up with her integration software developer for arthritis on discharge. Patient was doing well. Patient was ambulating well. Patient was discharged home with follow-up instructions. On day of discharge, patient was feeling well. She complained of some pain in her feet and ankles from arthritis. However she stated that she had an appointment with integration software developer following day. She denies nausea, vomiting, or abdominal pain. No headaches or dizziness. No fevers or chills. No dysuria. No chest pain or shortness of breath. Patient is having regular bowel movements. Physical exam: Gen: Awake and alert lying in bed in no acute distress HEENT: Normocephalic atraumatic. Extraocular muscles intact, pupils equal reactive. Oropharynx is pink and moist, no pharyngeal erythema or exudate appreciated. Neck is supple. Cardiovascular: Normal rhythm, normal S1-S2. Positive systolic murmur 3/6. No rubs or gallops appreciated Pulmonary: Normal respiratory effort. No rhonchi, rales or wheezing appreciated. Gastrointestinal: Soft, nondistended, nontender, positive bowel sounds all 4 quadrants, no guarding. Musculoskeletal: Normal range of motion all extremities, no calf tenderness, no CVA tenderness Central nervous system: AAO X 3, cranial nerves II through XII grossly intact, 5 /5 muscle strength all extremities Dermatologic: Skin warm and dry Please see chart for full details. Follow up instructions. Patient to follow-up with her primary care doctor. Dr. Adame, within 3-5 days. Continue routine monitoring with Dr. Adame for pulmonary nodule. Patient to follow-up with her integration software developer within 3-5 days. Patient to take medications as prescribed. All instructions explained to the patient in detail. Patient both understands and agrees to all instructions. Time spent in discharging the patient including chart review, medication reconciliation, discussion with the patient, site medical director, consultants, and nursing staff was approximately 40 minutes.
== END 2017-11-24 13:46 | disposition home or self-care (01) | DRG 194 ==
LOC: TRCU 18:30
PROVIDERS: ADMIT Internal Medicine; ATTEND Hospitalist
PROC: F08Z4ZZ Home Management Treatment (ICD-10-PCS; principal; 2017-11-17)
PROC: F07Z9ZZ Gait Training/Functional Ambulation Treatment (ICD-10-PCS; 2017-11-17)
PROC: 3E0F7GC Introduction of Other Therapeutic Substance into Respiratory Tract, Via Natural or Artificial Opening (ICD-10-PCS; 2017-11-17)
DX: J18.9 Pneumonia, unspecified organism (principal); K51.90 Ulcerative colitis, unspecified, without complications; E78.5 Hyperlipidemia, unspecified; I10 Essential (primary) hypertension; R91.1 Solitary pulmonary nodule; Y95 Nosocomial condition; E83.42 Hypomagnesemia; M19.90 Unspecified osteoarthritis, unspecified site; I95.9 Hypotension, unspecified; E78.00 Pure hypercholesterolemia, unspecified; E11.9 Type 2 diabetes mellitus without complications; Z87.891 Personal history of nicotine dependence